=== PATIENT | male | born 1965 | race African-American/Black ===

== ENCOUNTER 2017-03-20 19:59 | Emergency (ER) | payer MEDICAID ==
[~2017-03-20] VITALS: Ht 165.1 cm; Wt 89.0 kg
[2017-03-20 21:18] VITALS: BP 120/74
== END 2017-03-21 00:42 | disposition home or self-care (01) ==
LOC: ER 19:59
DX: T15.91XA Foreign body on external eye, part unspecified, right eye, initial encounter (principal); W22.8XXA Striking against or struck by other objects, initial encounter; Y93.89 Activity, other specified; Y92.69 Other specified industrial and construction area as the place of occurrence of the external cause; Y99.0 Civilian activity done for income or pay
CPT/HCPCS: 65220; 70486; 99284